=== PATIENT | female | born 1950 | race Caucasian/White ===

== ENCOUNTER → 2020-12-27 | Outpatient (CLI) | payer MEDICARE ==
[~2020-12-27] MED LIST: AMLO1CAP6 PO; CHOL10003 PO; METF10007 PO; METO-93 PO; MULT-449 PO; SERT100T32 PO
[2020-12-27 16:05] LABS: ALANINE AMINOTRANSFERASE 35 U/L (12-78); ALBUMIN 3.8 g/dL (3.4-5.0); ANION GAP 6 mmol/L (5-15); CALCIUM 10.4 mg/dL (8.5-10.1); CHLORIDE 105 mmol/L (98-107); CREATININE 0.91 mg/dL (0.55-1.02)
[2020-12-27 16:08] LABS: ALKALINE PHOSPHATASE 114 U/L (45-117); BILIRUBIN,TOTAL 0.2 mg/dL (0.2-1.0); TOTAL PROTEIN 7.4 g/dL (6.4-8.2)
== END | disposition home or self-care (01) ==
LOC: STAR 14:47
PROVIDERS: ATTEND Obstetrics & Gynecology Female Pelvic Medicine and Reconstructive Surgery
DX: Z01.812 Encounter for preprocedural laboratory examination (principal); Z20.822 Contact with and (suspected) exposure to COVID-19; R10.2 Pelvic and perineal pain; N39.3 Stress incontinence (female) (male); N81.10 Cystocele, unspecified; N81.6 Rectocele; R94.31 Abnormal electrocardiogram [ECG] [EKG]
CPT/HCPCS: 36415; 80053; 93005; U0003

== ENCOUNTER 2021-01-02 08:38 | Day surgery (SDC) | payer MEDICARE, MEDICAID ==
[~2021-01-02] VITALS: Ht 170.2 cm; Wt 100.4 kg
[~2021-01-02 08:38] MED LIST changes: +BUPIVACAINE/PF 0.25% ONE; +NEOMY/POLYMYXIN B GU IRR. 1 ML ONE
[2021-01-02 09:12] VITALS: BP 147/81
[2021-01-02] MEDS ORDERED: LACTATED RINGERS 1,000 ML IV SCH (09:30)
[2021-01-02] MEDS ORDERED: CHLORHEXIDINE 15 ML UDC PO ONE (09:30)
[2021-01-02] MEDS ORDERED: FENTANYL PF 250 MCG/5ML ONE (10:14)
[2021-01-02] MEDS ORDERED: PROPOFOL 10 MG/ML, 20ML ONE (10:14)
[2021-01-02] MEDS ORDERED: MIDAZOLAM 1 MG/ML, 2ML ONE (10:15)
[2021-01-02] MEDS ORDERED: SUCCINYLCHOLINE 20 MG/ML, 10ML ONE (11:15)
[2021-01-02] MEDS ORDERED: CEFAZOLIN 1,000 MG ONE (11:15)
[2021-01-02] MEDS ORDERED: DEXAMETHASONE 4 MG/ML, 1ML ONE (11:15)
[2021-01-02] MEDS ORDERED: ONDANSETRON 2MG/ML, 2ML ONE (11:15)
[2021-01-02] MEDS ORDERED: KETOROLAC 30 MG/1 ML ONE (11:15)
[2021-01-02] MEDS ORDERED: HYDROmorphone 1 MG/ML, 1ML INJ IVPush PRN (11:30)
[2021-01-02] MEDS ORDERED: hydrALAzine 20 MG/ML, 1ML IV PRN (11:30)
[2021-01-02] MEDS ORDERED: FENTANYL PF 100 MCG/2ML IV PRN (11:30)
[2021-01-02] MEDS ORDERED: ACETAMINOPHEN 325 MG TABLET PO PRN (11:30)
[2021-01-02] MEDS ORDERED: PROMETHAZINE 25 MG/ML, 1ML IVPush PRN (11:30)
[2021-01-02] MEDS ORDERED: LABETALOL 5MG/ML, 20ML IV PRN (11:30)
[2021-01-02] MEDS ORDERED: MEPERIDINE/PF 25MG/0.5ML IVPush PRN (11:30)
[2021-01-02] MEDS ORDERED: hydrALAzine 20 MG/ML, 1ML ONE (12:18)
[2021-01-02] MEDS ORDERED: OXYcodone 5 MG/5 ML ORAL.SOL UDC ONE (12:18)
[2021-01-02] MEDS ORDERED: ACETAMINOPHEN 650 MG/20.3 ML UDC ONE (12:19)
[2021-01-02] MEDS: OXYcodone 5 MG/5 ML ORAL.SOL UDC PO PRN ×2 (12:30→18:30)
[2021-01-03] MEDS ORDERED: METOPROLOL SUCCINATE 50 MG TAB.ER.24H PO SCH (06:00)
== END 2021-01-02 18:44 | disposition home or self-care (01) ==
LOC: OUT 08:38
PROVIDERS: ATTEND Obstetrics & Gynecology Female Pelvic Medicine and Reconstructive Surgery
DX: N81.89 Other female genital prolapse (principal); N39.46 Mixed incontinence; N81.11 Cystocele, midline; N81.6 Rectocele; N81.5 Vaginal enterocele; I10 Essential (primary) hypertension; E11.9 Type 2 diabetes mellitus without complications; F32.9 Major depressive disorder, single episode, unspecified; E78.2 Mixed hyperlipidemia; K21.9 Gastro-esophageal reflux disease without esophagitis; J45.909 Unspecified asthma, uncomplicated; M19.90 Unspecified osteoarthritis, unspecified site; Z79.84 Long term (current) use of oral hypoglycemic drugs; Z79.899 Other long term (current) drug therapy; Z86.010 Personal history of colon polyps; Z90.710 Acquired absence of both cervix and uterus; Z90.722 Acquired absence of ovaries, bilateral; Z90.79 Acquired absence of other genital organ(s); Z98.890 Other specified postprocedural states
CPT/HCPCS: 57265; 57282; 57288; 82962; C1771; J0330; J0360; J0690; J1100; J1885; J2250; J2405; J2704; J3010; J7120